=== PATIENT | female | born 1965 | race African-American/Black ===

== ENCOUNTER 2018-09-13 18:23 | Emergency (ER) | payer MEDICAID ==
[~2018-09-13] VITALS: Ht 165.1 cm; Wt 55.0 kg
[2018-09-13] MEDS ORDERED: IBUPROFEN 600MG TABLET PO ONE (19:45)
[2018-09-13 21:40] VITALS: BP 135/85
== END 2018-09-13 22:08 | disposition home or self-care (01) ==
LOC: ER 18:58
DX: S92.312A Displaced fracture of first metatarsal bone, left foot, initial encounter for closed fracture (principal); W01.0XXA Fall on same level from slipping, tripping and stumbling without subsequent striking against object, initial encounter; Y93.89 Activity, other specified; Y92.89 Other specified places as the place of occurrence of the external cause; Y99.8 Other external cause status
CPT/HCPCS: 73610; 73630; 99284; Z7610

== ENCOUNTER 2019-01-23 12:00 | Emergency (ER) | payer MEDICAID ==
[~2019-01-23] VITALS: Ht 160 cm; Wt 55.0 kg
[2019-01-23] MEDS ORDERED: KETOROLAC 60MG/2ML VIAL IM ONE (14:45)
[2019-01-23 14:56] VITALS: BP 141/88
== END 2019-01-23 15:24 | disposition home or self-care (01) ==
LOC: ER 12:00
DX: J20.9 Acute bronchitis, unspecified (principal); R03.0 Elevated blood-pressure reading, without diagnosis of hypertension
CPT/HCPCS: 96372; 99283; J1885

== ENCOUNTER 2021-05-09 14:39 | Emergency (ER) | payer MEDICAID ==
[~2021-05-09] VITALS: Ht 165.1 cm; Wt 63.0 kg
[2021-05-09] MEDS ORDERED: dilantin (14:53)
[2021-05-09] MEDS ORDERED: ACETAMINOPHEN WITH CODEINE 300/30MG TABLET PO ONE (16:45)
[2021-05-09 16:48] VITALS: BP 134/89
[2021-05-09] MEDS ORDERED: TOPUD MT (17:59)
== END 2021-05-09 18:12 | disposition home or self-care (01) ==
LOC: ER 14:39
DX: S00.12XA Contusion of left eyelid and periocular area, initial encounter (principal); Z98.890 Other specified postprocedural states; Y04.0XXA Assault by unarmed brawl or fight, initial encounter; Y93.89 Activity, other specified; Y92.89 Other specified places as the place of occurrence of the external cause; Y99.8 Other external cause status
CPT/HCPCS: 99283

== ENCOUNTER 2021-07-21 23:28 | Emergency (ER) | payer MEDICAID ==
[~2021-07-21] VITALS: Ht 162.6 cm; Wt 64.0 kg
[~2021-07-21 23:28] MED LIST: TOPUD MT; dilantin
[2021-07-21 23:32] VITALS: BP 112/64
[2021-07-22] MEDS ORDERED: ACETAMINOPHEN WITH CODEINE 300/30MG TABLET PO STA (00:17)
[2021-07-22] MEDS ORDERED: TETANUS, DIPHTHERIA, PERTUSSIS VAC/PF 0.5ML (>7YR OLD) IM ONE (00:30)
[2021-07-22] MEDS ORDERED: IBUP-2029 PO (01:29)
== END 2021-07-22 02:36 | disposition home or self-care (01) ==
LOC: ER 23:28
DX: S01.512A Laceration without foreign body of oral cavity, initial encounter (principal); Y08.89XA Assault by other specified means, initial encounter; Y93.89 Activity, other specified; Y92.89 Other specified places as the place of occurrence of the external cause; Y99.8 Other external cause status
CPT/HCPCS: 90471; 90715; 99283